=== PATIENT | female | born 1965 | race Caucasian/White ===

== ENCOUNTER → 2018-04-17 | Outpatient (CLI) | payer BC, OTHER ==
--- NOTE | 2018-04-17 16:06 | Diagnostic Imaging Report ---
PROCEDURE: US Non-ob pelvis comp/trans. TECHNIQUE: Multiple realtime grayscale images were obtained of the pelvis in various projections endovaginally. Transabdominal imaging was also performed. INDICATION: Irregular menses. FINDINGS: Uterus measures 8.3 x 4.1 x 4.3 cm. No myometrial mass is identified. Endometrium is 6 mm in thickness. The right ovary measures 3.4 x 2.3 x 1.6 cm and the left ovary measures 3.6 x 3.2 x 2.2 cm. The left ovary contains a 17 mm cyst. The right ovary contains an approximately 17 mm cyst as well. Small amount of free fluid is identified in the cul-de-sac and adjacent to right ovary. Blood flow to both ovaries. IMPRESSION: Small bilateral ovarian cysts. The study is otherwise unremarkable. Dictated by: Dictated on workstation # [id number]
== END ==
LOC: RAD 14:53
PROVIDERS: ATTEND Nurse Practitioner Family
DX: N83.202 Unspecified ovarian cyst, left side (principal); N83.201 Unspecified ovarian cyst, right side
CPT/HCPCS: 76830; 76856

== ENCOUNTER → 2020-10-14 | Outpatient (CLI) | payer BC ==
--- NOTE | 2020-10-14 12:50 | Diagnostic Imaging Report ---
INDICATION: Routine screening. COMPARISON: 05/04/2018 and 05/02/2017. TECHNIQUE: 2D and 3D bilateral screening mammography was performed with CAD. FINDINGS: Scattered fibroglandular densities are identified bilaterally. The benign intraparenchymal lymph node in the upper outer right breast appears stable. No new mass or malignant appearing microcalcifications are seen. The axillae are unremarkable. IMPRESSION: No mammographic features suspicious for malignancy are identified. ACR BI-RADS Category 2: Benign findings. Result letter will be mailed to the patient. Note: At least 10% of breast cancer is not imaged by mammography. Dictated by: Dictated on workstation # [id number]
== END ==
LOC: RAD 10:42
PROVIDERS: ATTEND Nurse Practitioner Family
DX: Z12.31 Encounter for screening mammogram for malignant neoplasm of breast (principal)
CPT/HCPCS: 77063; 77067

== ENCOUNTER → 2022-04-13 | Outpatient (CLI) | payer BC ==
--- NOTE | 2022-04-13 12:58 | Diagnostic Imaging Report ---
INDICATION: Routine screening. COMPARISON: 10/14/2020 and 05/04/2018. TECHNIQUE: 2D and 3D bilateral screening mammography was performed with CAD. FINDINGS: Both breasts are heterogeneously dense, limiting the sensitivity of mammography. Circumscribed nodules in the outer right breast are stable. No spiculated mass or malignant-appearing microcalcifications are seen. The axillae are unremarkable. IMPRESSION: No mammographic features suspicious for malignancy are identified. ACR BI-RADS Category 2: Benign findings. Result letter will be mailed to the patient. Note: At least 10% of breast cancer is not imaged by mammography. Dictated by: Dictated on workstation # [id number]
== END ==
LOC: RAD 10:45
PROVIDERS: ATTEND Nurse Practitioner Family
DX: Z12.31 Encounter for screening mammogram for malignant neoplasm of breast (principal)
CPT/HCPCS: 77063; 77067

== ENCOUNTER → 2022-09-13 | Outpatient (CLI) | payer BC ==
--- NOTE | 2022-09-13 17:21 | Diagnostic Imaging Report ---
PROCEDURE: MRI lumbar spine. TECHNIQUE: Multiplanar, multisequence MRI of the lumbar spine was performed without contrast. INDICATION: Left foot drop, back pain. EXAMINATION: Lumbar spine MRI from 09/13/2022 COMPARISONS: None FINDINGS: There is straightening of the normal curvature. No significant subluxations seen with no compression deformities appreciated. L1-L2: There is bilateral facet and ligamentum flavum hypertrophy. A mild left paracentral disc protrusion is noted which extends into the left lateral recess. There is no central stenosis. There is xgdx-ho-onoxxujq bilateral neuroforaminal narrowing. L2-L3: There is disc desiccation with a broad-based bulging disc. There is marked bilateral facet and ligamentum flavum hypertrophy. There is secondary kpul-fa-teplnvki central stenosis. There is mild bilateral neuroforaminal narrowing. L3-L4: There is intervertebral disc space narrowing, disc desiccation with a broad-based bulging disc containing a diffuse annular tear. There is bilateral facet and ligamentum flavum hypertrophy with secondary moderate central stenosis and narrowing of the left lateral recess. There is mild bilateral neural foraminal stenosis. L4-L5: There is disc desiccation with intervertebral disc space narrowing. There is a broad-based bulging disc. There is bilateral facet and ligamentum flavum hypertrophy. There is moderate central narrowing with narrowing of the left lateral recess. There is a bgixadxo-mv-iuiaop left and moderate right neural foraminal stenosis. L5-S1: There is intervertebral disc space narrowing with disc desiccation with a broad-based bulging disc. A more focal right paracentral disc extrusion noted. Findings cause moderate central stenosis with marked narrowing of the lateral recesses bilaterally. Bilateral facet and ligamentum flavum hypertrophy noted as well. There is severe bilateral neural foraminal stenosis, left worse than right. Visualized intra-abdominal structures unremarkable for acute abnormality. IMPRESSION: 1. Multilevel diffuse degenerative findings as detailed above with multilevel areas of lateral recess narrowing especially on the left and moderate central stenosis and marked bilateral lateral recess narrowing at the L5-S1 level with areas of severe neural foraminal stenosis at this level also noted. Dictated by: Dictated on workstation # [id number]
== END ==
LOC: RAD 14:20
PROVIDERS: ATTEND Nurse Practitioner Family
DX: M47.26 Other spondylosis with radiculopathy, lumbar region (principal); M47.817 Spondylosis without myelopathy or radiculopathy, lumbosacral region; M51.16 Intervertebral disc disorders with radiculopathy, lumbar region; M51.27 Other intervertebral disc displacement, lumbosacral region; M51.37 Other intervertebral disc degeneration, lumbosacral region; M48.061 Spinal stenosis, lumbar region without neurogenic claudication; M48.07 Spinal stenosis, lumbosacral region; M21.372 Foot drop, left foot
CPT/HCPCS: 72148

== ENCOUNTER 2022-10-20 12:00 | Emergency (ER) | payer BC ==
[~2022-10-20] VITALS: Ht 175 cm; Wt 80.0 kg
--- NOTE | 2022-10-20 12:30 | ED Lower Extremity ---
General Chief Complaint: Lower Extremity Stated Complaint: FALL | LT KNEE INJ Source: patient, family Exam Limitations: no limitations History of Present Illness Date Seen by Provider: Oct 20, 2022 Time Seen by Provider: 12:15 Initial Comments History provided by patient and significant other. Patient is a 57-year-old female who presents to the emergency department for evaluation after a fall down 4 concrete stairs outside her home. Patient reportedly has an history of increased falls over the last several months. She is scheduled to follow-up with a neurologist at in regards to this. Patient states she sustained a large laceration to her left lower leg. She states the area is not particularly painful. She states she also has a small abrasion to her right elbow that is mild and she is not concerned about. She states she has full range of motion of her right elbow and left knee. Patient is unsure of the date of her last tetanus immunization. Patient states she did not hit her head and did not have any loss of consciousness. Allergies and Home Medications Allergies Coded Allergies: No Known Drug Allergies (Unverified , 10/20/22) Patient Home Medication List Home Medication List Reviewed: Yes Amoxicillin/Potassium Clav (Amox Tr-K Clv 875-125 mg Tab) 875 Mg-125 Mg Tablet, 1 EACH PO BID Prescribed by: Jassi Dasilva on 10/20/22 1420 Review of Systems Constitutional: no symptoms reported EENTM: no symptoms reported Respiratory: no symptoms reported Cardiovascular: no symptoms reported Gastrointestinal: no symptoms reported Genitourinary: no symptoms reported Musculoskeletal: see HPI, joint pain Skin: see HPI Physical Exam Vital Signs Vital Signs - First Documented 10/20/22 12:25 Temp 37.7 Pulse 80 Resp 16 B/P (MAP) 119/68 (85) Pulse Ox 97 Capillary Refill : Height, Weight, BMI Height: '" Weight: lbs. oz. kg; BMI Method: General Appearance: WD/WN, no apparent distress HEENT: PERRL/EOMI, normal ENT inspection, TMs normal, pharynx normal Neck: non-tender, full range of motion, supple, normal inspection Cardiovascular: regular rate, rhythm Respiratory: chest non-tender, lungs clear, normal breath sounds, no respiratory distress, no accessory muscle use Gastrointestinal: normal bowel sounds, non tender, soft Knees: left knee pain Neurologic/Psychiatric: no motor/sensory deficits, alert, normal mood/affect, oriented x 3 Skin: normal color, warm/dry large 15 cm laceration noted to the anterior L knee just distal of the knee Procedures/Interventions Wound Location: Lower Extremities Other Wound Location Proximal anterior lower left leg just distal to the knee Wound Length (cm): 15 Wound's Depth, Shape: into muscle, irregular, bone, tendon Wound Explored: contaminated Irrigated w/ Saline (ccs): 1000 Betadine Prep?: No Anesthesia: 1% Lidocaine Volume Anesthetic (ccs): 14 Wound Debrided: moderate Staple Repair: Stapler 35W Suture: Vicryl Suture Size: 3-0 Number of Sutures: 27 (roya) Layer Closure?: 2 Number Deep Layer Sutures: 15 Sterile Dressing Applied?: Yes Progress Extensive laceration to the left lower leg repaired as noted above; the wound was extremely deep with exposure of the insertion of the patellar tendon on the anterior tibial tuberosity; the lateral portion of the wound extended to the tibia which was visible at the base of the wound; deep Vicryl sutures were placed after which roya were used to approximate the skin; patient tolerated this well; your wound was dressed by nursing and patient will be given a knee immobilizer to use at home Progress/Results/Core Measures Results/Orders My Orders Orders - JASSI DASILVA APRN Tibia/Fibula, Left, 2 Views (10/20/22 12:19) Tetanus/Diphtheria Inj (Adult) (Tenivac (10/20/22 12:45) Lidocaine 1% Inj 20 Ml (Xylocaine 1% Inj (10/20/22 13:00) Dipht,Pertuss(Acell),Tet Adult (Boostrix (10/20/22 13:30) Knee Immobilizer (10/20/22 14:23) Medications Given in ED Current Medications Medications Dose Ordered Sig/Bogdan Route Start Time Stop Time Status Last Admin Dose Admin Diphtheria/ Tetanus/Acell Pertussis 0.5 ml ONCE ONCE IM 10/20/22 13:30 10/20/22 13:31 DC 10/20/22 13:24 0.5 ML Lidocaine HCl 20 ml ONCE ONCE INJ 10/20/22 13:00 10/20/22 13:01 DC 10/20/22 13:23 20 ML Vital Signs/I&O 10/20/22 10/20/22 12:25 14:26 Temp 37.7 Pulse 80 69 Resp 16 16 B/P (MAP) 119/68 (85) 122/81 Pulse Ox 97 97 Progress Progress Note : Progress Note Patient is nontoxic and well-hydrated on exam. Vital signs reassuring. She has a very superficial abrasion overlying the extensor aspect of her right elbow. No bony tenderness to palpation or decreased range of motion noted to the right elbow. Patient also has an extensive laceration to the left lower leg. This laceration measures 15 cm in length and extends to the bone with a portion of the tibia exposed. The patella tendon is also visible at its insertion to the anterior tibial tuberosity. Patient is not complaining of any pain at this time. Neurovascular function intact distal to the injury. Left DP and PT pulses are strong and regular. Patient is able to fully flex and extend the knee without issue. X-ray of the left knee and left tib-fib ordered. Tdap immunization also ordered. Patient is not requesting any analgesia at this time. Laceration was repaired as noted separately. This was a very extensive laceration requiring a time-consuming layered repair. The patient tolerated this well. The wound was very copiously irrigated with 1 L of high-pressure saline. She will be placed on prophylactic Augmentin given the depth of the wound and the possibility that not all foreign debris was able to be evacuated with irrigation. We will discharge home with recommendations for supportive care and follow-up with PCP. Patient was placed in a knee immobilizer to help with wound healing. I stated she would need to have her roya removed in 10 to 14 days. Departure Impression Primary Impression: Laceration of left lower leg Qualified Codes: S81.812A - Laceration without foreign body, left lower leg, initial encounter Disposition: 01 HOME, SELF-CARE Condition: Stable Departure-Patient Inst. Decision time for Depature: 14:15 Referrals: [facility] [place] [facility] [facility]) Primary Care Physician Patient Instructions: Laceration Repair With Roya ED Add. Discharge Instructions: You will need to follow-up to have your roya removed in 10 to 14 days. You have been given a knee immobilizer to use when you are up walking to help prevent excess motion opening the wound. You have been updated on your tetanus immunization today. Please return to the ER if you notice significant redness to the wound or any infectious drainage. You have been given a course of antibiotics to take to hopefully prevent infection. All discharge instructions reviewed with patient and/or family. Voiced understanding. Scripts Amoxicillin/Potassium Clav (Amox Tr-K Clv 875-125 mg Tab) 875 Mg-125 Mg Tablet 1 EACH PO BID for 7 Days, #14 TAB Prov: JASSI DASILVA APRN 10/20/22 JASSI DASILVA APRN Oct 20, 2022 12:30
--- NOTE | 2022-10-20 12:40 | Diagnostic Imaging Report ---
CLINICAL HISTORY: Left knee pain. Fall. COMPARISON: None. TECHNIQUE: 3 views of the left knee. FINDINGS: There is no acute fracture or dislocation of the left knee. Alignment is anatomic. The imaged joint spaces are preserved. No large joint effusion. Benign-appearing sclerotic lesion is seen in the distal left femur. IMPRESSION: 1. No acute fracture or dislocation of the left knee. No joint effusion. Dictated by: Dictated on workstation # [id number]
--- NOTE | 2022-10-20 12:44 | Diagnostic Imaging Report ---
INDICATION: Fall with left leg injury AP and lateral views of the left leg reveal prominent laceration along the anterior aspect of the proximal leg just distal to the patellar tendon insertion. There is no radiographic evidence of an acute fracture or subluxation. No definite joint fluid is seen. There is central sclerosis within the distal femoral shaft. This could be related to enchondroma. IMPRESSION: Anterior proximal leg laceration near the tendinous insertion on the anterior tibial tuberosity. Clinical correlation to lay extension would be useful. Otherwise, no definite osseous abnormality or radiopaque foreign body is seen. Dictated by: Dictated on workstation # [id number]
[2022-10-20] MEDS ORDERED: TETANUS & DIPHTHERIA TOX,ADULT 0.5 ML (TENIVAC) IM ONE (12:45)
[2022-10-20] MEDS ORDERED: LIDOCAINE 1% INJ 20 ML VIAL INJ ONE (13:00)
[2022-10-20] MEDS ORDERED: TETANUS,DIPTH,PERTUSS P/F (BOOSTRIX) 0.5 ML VIAL IM ONE (13:30)
[2022-10-20] MEDS ORDERED: AMOX1TAB12 PO (14:20)
[2022-10-20 14:26] VITALS: BP 122/81
== END 2022-10-20 14:26 | disposition home or self-care (01) ==
LOC: EDUNIT# 12:00 → ER 12:02
DX: S81.012A Laceration without foreign body, left knee, initial encounter (principal); S50.311A Abrasion of right elbow, initial encounter; Z23 Encounter for immunization; W10.9XXA Fall (on) (from) unspecified stairs and steps, initial encounter
CPT/HCPCS: 12034; 73562; 73590; 90715